=== PATIENT | male | born 1950 | race Caucasian/White ===

== ENCOUNTER 2018-11-14 05:32 | Observation (INO) ==
--- NOTE | 2018-11-01 15:15 | PAT Medication Instructions ---
Medication Instructions Date of Service November 01, 2018 Home Medications apple cider vinegar 1 mg PO DAILY ascorbic acid (vitamin C) [Vitamin C] 500 mg PO DAILY iedavsr-hqypdrkjm-vnaj 1 tab PO DAILY cetirizine 10 mg PO DAILY PRN cholecalciferol (vitamin D3) [Vitamin D3] 1,000 unit PO DAILY cyanocobalamin (vitamin B-12) [Vitamin B-12] 1,000 mcg PO DAILY ginseng 250 mg PO DAILY glucos sul 5VLu-gyw-uedxf-C-Mn [Glucosamine Chondroitin] 1 cap PO DAILY xrbxuwvt-cmg-ZB-lycopen-lutein [Centrum Silver Men] 1 tab PO DAILY omega 3-aiq-caz-fish oil [[place]-3] 1 cap PO DAILY saw palmetto 500 mg PO WK vitamin E 400 unit PO DAILY STOP taking 2 weeks before surgery (or as soon as possible if surgery is within 2 weeks) apple cider vinegar 1 mg PO DAILY ginseng 250 mg PO DAILY glucos sul 6CDd-qly-bebfm-C-Mn [Glucosamine Chondroitin] 1 cap PO DAILY omega 0-kaa-inx-fish oil [[place]-3] 1 cap PO DAILY saw palmetto 500 mg PO WK vitamin E 400 unit PO DAILY DO NOT take the morning of surgery ascorbic acid (vitamin C) [Vitamin C] 500 mg PO DAILY zctwiqc-fwnfbbsmg-wvkm 1 tab PO DAILY cetirizine 10 mg PO DAILY PRN cholecalciferol (vitamin D3) [Vitamin D3] 1,000 unit PO DAILY cyanocobalamin (vitamin B-12) [Vitamin B-12] 1,000 mcg PO DAILY Centrum Silver Men 1 tab PO DAILY Other Notes If you have any questions please call us at [phone] or [phone] or [phone] or [phone]
--- NOTE | 2018-11-02 15:18 | Anesthesiology Consultation ---
Date of Service November 02, 2018 Assessment & Plan (1) Encounter for pre-operative examination: Chart Review Chart Review: Acceptable Risk for Surgery and Patient seen in Pre Admission Testing Teaching & Discussion Instructed NPO after midnight before surgery, except medications with 15 cc of water. Medication instructions provided according to the PAT guidelines. History Surgery Operation Date: 11/14/18 09:55 Proposed Procedures p Open Recurrent Left Inguinal Hernia Repair - Duy Kennedy MD, FACS Height/Weight Height: 5 ft 7 in Weight: 80.4 kg Allergies Allergy/AdvReac Type Severity Reaction Status Date / Time No Known Allergies Allergy NKA Unverified 11/01/18 08:25 Medications Home Medications Medication Instructions Recorded Confirmed Last Taken apple cider vinegar 1 mg PO DAILY 11/01/18 11/01/18 Unknown ascorbic acid (vitamin C) [Vitamin 500 mg PO DAILY 11/01/18 11/01/18 Unknown C] eqhjtap-xmrrlcyhq-xgum 1 tab PO DAILY 11/01/18 11/01/18 Unknown cetirizine 10 mg PO DAILY PRN 11/01/18 11/01/18 Unknown cholecalciferol (vitamin D3) 1,000 unit PO DAILY 11/01/18 11/01/18 Unknown [Vitamin D3] cyanocobalamin (vitamin B-12) 1,000 mcg PO DAILY 11/01/18 11/01/18 Unknown [Vitamin B-12] ginseng 250 mg PO DAILY 11/01/18 11/01/18 Unknown glucos sul 6NTz-aic-wzvle-C-Mn 1 cap PO DAILY 11/01/18 11/01/18 Unknown [Glucosamine Chondroitin] qinmurqh-vqk-XA-lycopen-lutein 1 tab PO DAILY 11/01/18 11/01/18 Unknown [Centrum Silver Men] omega 2-otm-oyt-fish oil [[place]-3] 1 cap PO DAILY 11/01/18 11/01/18 Unknown saw palmetto 500 mg PO WK 11/01/18 11/01/18 Unknown vitamin E 400 unit PO DAILY 11/01/18 11/01/18 Unknown Past Medical History Medical History Hearing deficit BILATERAL HEARING AIDES Kidney stones Passed Recurrent inguinal hernia Exercise / Class Metabolic Activity II 4-5 Yardwork/Stairs/Walk up hill Past Family History Family History Other No pertinent family history Past Surgical History Surgical History History of colonoscopy History of herniorrhaphy LEFT INGUINAL HERNIA REPAIR Past Anesthesia History No Hx of Anesthesia Complications and No Family Hx of Anesthesia Complications History of PONV No Hx of PONV and No Hx of Motion Sickness Social History Smoking Status: Never smoker Do You Dip or Chew Tobacco: No Hx Alcohol Use: No Hx Substance Use: No substance use type: does not use Review of Systems Pt denies any recent chest pain, shortness of breath, palpitations, cough, fever or URI. +seasonal allergies, managed with prn OTC allergy medicine Physical Exam Vital Signs BP: 143/81 P: 62bpm SPO2: 95% RA T: 98.1 F R: 16 ENMT Mouth: + dentures (upper and lower partial); no chipped teeth and no loose teeth Thyromental Distance: > or= 3.5 Finger Breadths (3.5) Mallampati Class: II Neck normal visual inspection; neck extension not limited Respiratory normal respiratory effort Auscultation: lungs clear to auscultation bilaterally Cardiovascular Rate/Rhythm: regular rate and regular rhythm Heart Sounds: no murmur Vessels: no carotid bruit Extremities: no edema Testing Laboratory Results 11/02/18 15:28 11/02/18 15:28 Electrocardiogram Date: 11/02/18 Findings: + NSR @ (64)
[2018-11-02 15:52] LABS: Basophils # (auto) 0.03 K/uL (0-0.2); Basophils % (auto) 0.5 %; Eosinophils # (auto) 0.14 K/uL (0-0.5); Eosinophils % (auto) 2.4 %; Hematocrit (blood only) 40.5 % (42-52); Hemoglobin 14.4 g/dL (14.0-18.0); Immature Granulocytes # (auto) 0.01 K/uL (0.00-0.02); Immature Granulocytes % (auto) 0.2 %; Lymphocytes # (auto) 1.68 K/uL (1.2-3.4); Mean Corpuscular Hgb Conc 35.6 g/dL (32-36); Mean Corpuscular Volume 89.4 fL (80-100); Mean Platelet Volume 9.3 fL (7.4-10.4); Monocytes # (auto) 0.51 K/uL (0.11-0.59); Monocytes % (auto) 8.8 %; Neutrophils # (auto) 3.42 K/uL (1.4-6.5); Neutrophils % (auto) 59.1 %; Platelet Count 193 K/uL (130-400); RDW Coefficient of Variation 12.9 % (11.5-14.5); RDW Standard Deviation 41.7 fL (36.4-46.3); Red Blood Count 4.53 M/uL (4.7-6.1); White Blood Count 5.79 K/uL (4.8-10.8)
[2018-11-02 15:59] LABS: BUN Creatinine Ratio 17.5 (10-20); Calcium 9.3 mg/dl (8.5-10.1); Creatinine Clr Calc Pharmacy 72.3 ml/min; Est GFR (African American) 90.8; Est GFR (Non-African American) 78.4; Potassium 3.7 mmol/L (3.5-5.1)
[2018-11-14] MEDS ORDERED: CEFAZOLIN 2000MG 2,000 MG/15 ML SYR IV SCH (06:00)
[2018-11-14] MEDS ORDERED: LR 15ML/HR IV SCH (06:00)
[2018-11-14] MEDS ORDERED: DEXAMETHASONE SOD INJ 4 MG/ML VIAL ONE (06:36)
[2018-11-14] MEDS ORDERED: ONDANSETRON INJ 2 MG/ML 2 ML VIAL ONE (06:36)
[2018-11-14] MEDS ORDERED: LIDOCAINE HCL 2% 2 ML VIAL/AMP(20MG/ML) INFIL ONE (06:36)
[2018-11-14] MEDS ORDERED: MIDAZOLAM HCL 1 MG/ML 2ML VIAL ONE (06:36)
[2018-11-14] MEDS ORDERED: PROPOFOL IV EMULSION 10 MG/ML 20 ML VIAL IV ONE (06:36)
[2018-11-14] MEDS ORDERED: fentaNYL citrate 100 MCG/2 ML VIAL ONE (06:36)
[2018-11-14] MEDS ORDERED: CEFAZOLIN 250 MG/ML 1 GM VIAL ONE (06:47)
[2018-11-14] MEDS ORDERED: LIDOCAINE HCL 1% 20 ML VIAL ONE (06:47)
[2018-11-14] MEDS ORDERED: BUPIVACAINE 0.5 % 5 MG/1 ML MPF 30ML VIAL ONE (06:47)
[2018-11-14] MEDS ORDERED: ATROPINE SULFATE 0.1 MG/ML 10ML SYR IV PRN (08:02)
[2018-11-14] MEDS ORDERED: fentaNYL citrate 100 MCG/2 ML VIAL IV PRN (08:02)
[2018-11-14] MEDS ORDERED: ONDANSETRON INJ 2 MG/ML 2 ML VIAL IV PRN ×2 (08:02→10:03)
[2018-11-14] MEDS ORDERED: ePHEDrine sulfate 50 MG/ML AMP IV PRN (08:02)
[2018-11-14] MEDS ORDERED: HYDROmorphone INJ 1 MG/ML SYRINGE IV PRN (08:02)
[2018-11-14] MEDS ORDERED: ACETAMINOPHEN 1,000 MG/100 ML VIAL IV PRN (08:12)
--- NOTE | 2018-11-14 08:12 | Operative Report ---
Post Operative Report Pre & Post Diagnosis Operation Date: 11/14/18 07:00 Pre-Op Diagnosis: Recurrent Left Inguinal Hernia Post-Op Diagnosis: Recurrent Left Inguinal Hernia w/ indirect defect Procedure Operation Date: 11/14/18 07:00 Actual Procedures p Open Recurrent Left Inguinal Hernia Repair(Left) - Duy Kennedy MD, FACS Surgeon Duy Kennedy MD, FACS Armature Rewinder Yasir Banuelos Estimated Blood Loss 10 Findings Consistent with Post-Op Diagnosis Specimens none Description of Procedure see dictation I attest to the content of the Intraoperative Record and any orders documented therein. Any exceptions are noted below.
--- NOTE | 2018-11-14 08:32 | Operative Report ---
DATE OF OPERATION: 11/14/2018 NAME OF OPERATION: Recurrent left inguinal hernia repair with mesh. PREOPERATIVE DIAGNOSIS: Recurrent left inguinal hernia. POSTOPERATIVE DIAGNOSIS: Left inguinal hernia with indirect defect. STAFF SURGEON: Duy Kennedy MD POWDER WORKER: Alexander Banuelos PA-C ANESTHESIA: General. DESCRIPTION OF PROCEDURE: The patient was brought in the operating room and placed on the operating table in supine position. His lower abdomen was prepped and draped in usual fashion. He had a previous scar in the left lower abdomen. This was anesthetized using 0.5% plain Marcaine. Incision made parallel to the inguinal ligament, carrying dissection down through scar tissue, identifying the external oblique fibers and then the external ring. The external oblique fibers were incised along their length to the external ring, mobilizing the cord structures with some difficulty because of the prior scar tissue. It was then evident that the patient had an indirect hernia sac which on CT scan contained colon, but the colon was reduced. The cord structures were dissected away from the sac and then the sac reduced and then a large mesh plug placed into the defect, secured to surrounding tissue using 0 silk suture and 2-0 Ethibond suture. At this point, a large mesh patch was placed into the floor of the canal around the cord structures and then secured using 2-0 Ethibond suture and 0 silk suture. The area was irrigated with antibiotic solution and then anesthetized using 0.5% plain Marcaine. External oblique fibers were closed around the cord structures over the mesh using 2-0 Ethibond suture and 0 silk suture. Subcutaneous tissue was reapproximated using 2-0 plain suture and then the skin reapproximated using 4-0 nylon suture. My web press operator assistant helped with prepping, draping, repair of the hernia and closure of the wound. I attest to the content of the Intraoperative Record and any orders documented therein. Any exception s are noted below.
[2018-11-14] MEDS ORDERED: ACETAMINOPHEN 1000 MG/100 ML IV IV ONE (09:01)
[2018-11-14] MEDS ORDERED: ACETAMINOPHEN 1,000 MG/100 ML VIAL IV STA (09:02)
[2018-11-14] MEDS ORDERED: ROCURONIUM BROMIDE 10 MG/ML 5 ML VIAL ONE (09:19)
--- NOTE | 2018-11-14 09:19 | Anesthesiology Progress Note ---
Date of Service November 14, 2018 Anesthesia Post Procedure Vital Signs Vital Signs: Temp Pulse Pulse Resp BP Pulse Ox 11/14/18 09:00 80 20 136/81 96 11/14/18 08:50 77 20 139/78 95 11/14/18 08:40 36.3 C L 91 H 18 142/76 H 95 11/14/18 06:01 36.9 C 51 L 18 115/80 98 Transfer of Care Handoff Completed per policy Notes Mental Status: alert / awake / arousable and participated in evaluation Patient Amnestic to Procedure: Yes Nausea / Vomiting: adequately controlled Pain: adequately controlled Airway Patency, RR, SpO2: stable & adequate BP & HR: stable & adequate Hydration State: stable & adequate Anesthetic Complications: no major complications apparent and Pt Satisfied with anesthetic care
[2018-11-14] MEDS ORDERED: NEOSTIGMINE METHYLSULFATE 5 MG/5 ML SYR ONE (09:24)
[2018-11-14] MEDS ORDERED: GLYCOPYRROLATE 0.2 MG/ML VIAL ONE (09:24)
[2018-11-14] MEDS ORDERED: SODIUM CHLORIDE 0.9% 1000ML 1,000 ML IV SCH (10:03)
[2018-11-14] MEDS ORDERED: HYDROCODONE/ACETAMOPHEN 5/325MG TAB PO PRN ×2 (10:03)
[2018-11-14] MEDS ORDERED: PROMETHAZINE HCL 25 MG in SODIUM CHLORIDE 0.9% 50 ML IV PRN (10:03)
[2018-11-14] MEDS ORDERED: ACETAMINOPHEN 325 MG TAB PO PRN (10:03)
[2018-11-14] MEDS ORDERED: IBUPROFEN 600 MG TAB PO PRN (10:03)
[2018-11-14] MEDS ORDERED: PROMETHAZINE HCL 12.5 MG in SODIUM CHLORIDE 0.9% 50 ML IV PRN (10:03)
[2018-11-14] MEDS ORDERED: MoRPHine SULFATE 2 MG/ML CARP IV PRN (10:03)
[2018-11-14] MEDS: CEFAZOLIN 1000MG 1,000 MG/7.5 ML SYR IV SCH ×2 (13:44→21:28)
--- NOTE | 2018-11-14 14:00 | Hospitalist Consultation ---
Date of Consultation November 14, 2018 Assessment & Plan (1) Encounter for consultation: Patient seen postoperatively is in stable condition his medications have been continued by Dr. Kennedy he has no complaints or problems we will continue to watch him for any new signs or symptoms otherwise the patient is likely anticipate to be discharged home in the next 24 hours History of Present Illness Attending Physician: Duy Kennedy MD, FACS 11/14/18 07:00 Anesthesia Type: General Open Recurrent Left Inguinal Hernia Repair History of Present Illness Medical consultation gentleman status post left inguinal hernia repair by Dr. Duy Kennedy. Patient is generally a fairly healthy gentleman only medication this prescription although its svwy-uel-rxrcjto he takes Zyrtec the remainder of her nutraceuticals and vitamins. Patient seen postoperatively he has no complaints or problems. He is ambulating in the room already has moved his bowels and is urged to go home, likely in the morning Allergies Allergy/AdvReac Type Severity Reaction Status Date / Time No Known Allergies Allergy NKA Verified 11/14/18 05:51 Home Medications Home Medications Medication Instructions Recorded Confirmed Type apple cider vinegar 1 mg PO DAILY 11/01/18 11/14/18 History ascorbic acid (vitamin C) [Vitamin 500 mg PO DAILY 11/01/18 11/14/18 History C] rmroibx-ejcjhkhck-efnn 1 tab PO DAILY 11/01/18 11/14/18 History cetirizine 10 mg PO DAILY PRN 11/01/18 11/14/18 History cholecalciferol (vitamin D3) 1,000 unit PO DAILY 11/01/18 11/14/18 History [Vitamin D3] cyanocobalamin (vitamin B-12) 1,000 mcg PO DAILY 11/01/18 11/14/18 History [Vitamin B-12] ginseng 250 mg PO DAILY 11/01/18 11/14/18 History glucos sul 5MGg-fux-pljwc-C-Mn 1 cap PO DAILY 11/01/18 11/14/18 History [Glucosamine Chondroitin] inexdixz-vyv-CZ-lycopen-lutein 1 tab PO DAILY 11/01/18 11/14/18 History [Centrum Silver Men] omega 6-sjn-juj-fish oil [[place]-3] 1 cap PO DAILY 11/01/18 11/14/18 History saw palmetto 500 mg PO WK 11/01/18 11/14/18 History vitamin E 400 unit PO DAILY 11/01/18 11/14/18 History cephalexin [Keflex] 500 mg PO TID #15 cap 11/14/18 Rx hydrocodone-acetaminophen [[place]] 1 - 2 tab PO Q6H PRN #30 tab 11/14/18 Rx Patient History Medical History Hearing deficit BILATERAL HEARING AIDES Kidney stones Passed Recurrent inguinal hernia Surgical History History of colonoscopy History of herniorrhaphy LEFT INGUINAL HERNIA REPAIR Family History Other No pertinent family history Social History Preferred Language: Ukrainian Communication Ability: Effective Lead Web Developer Required: No Beliefs That Will Affect Care: None Current Living Situation: Spouse Other Information That Helps Us Care for You: No Feels Safe at Home: Yes Safety Concerns: Feels Safe At This Time Smoking Status: Never smoker Do You Dip or Chew Tobacco: No Second Hand Exposure: No Tobacco Cessation Education Requested by Patient: No Hx Alcohol Use: No Hx Substance Use: No Review of Systems Review of Systems: ROS: well nourished well developed. No double vision blurry vision No problems with speech or swallowing No palpitations, chest pain or pressure No Wheezing or breathing issues Some mild left lower quadrant abdominal pain but no nausea vomiting had a bowel movement already No burning urine urine frequency or changes in color No focal joint pain or muscle pain No skin rashes or oral lesions No unusual bruising or bleeding No focused back pain or numbness or loss of strength No changes in memory or confusion Physical Exam Physical Exam: The patient appeared well nourished and normally developed. Vital signs as documented. Head exam is unremarkable. normocephalic, atraumatic Neck is without jugular venous distension, thyromegaly, or lymphademopathy Lungs are clear to auscultation and percussion. Cardiac exam reveals Rhythm is regular. First and second heart sounds normal. Abdominal exam reveals normal bowel sounds, no masses, no organomegaly mild tenderness to palpation of his lower abdomen worse in the left quadrant than right but definitely not anything suspicious at this time Extremities are nonedematous and both pedal pulses are present Neurologic exam is A&Ox3, no focal deficits, strength is equal bilateral Psychologically seems neither anxious or depressed Skin is warm Dry Results & Data Vital Signs (Past 12 Hours) Vital Signs Temp Pulse Pulse Resp BP Pulse Ox 11/14/18 13:00 79 16 131/73 91 11/14/18 11:55 79 16 152/69 H 90 11/14/18 10:57 91 H 16 157/82 H 98 11/14/18 10:26 84 16 137/82 97 11/14/18 09:55 36.5 C 82 18 133/73 96 11/14/18 09:45 71 21 115/74 97 11/14/18 09:30 67 19 123/71 97 11/14/18 09:20 36.2 C L 68 20 126/68 96 11/14/18 09:10 70 19 118/69 94 11/14/18 09:00 80 20 136/81 96 11/14/18 08:50 77 20 139/78 95 11/14/18 08:40 36.3 C L 91 H 18 142/76 H 95 11/14/18 06:01 36.9 C 51 L 18 115/80 98 PG Care Time/CCT Total # of Minutes Spent Total Time Spent with Patient: Total time spent is greater than 50% in coordination of care (as documented) at patient's floor/unit and/or counseling patient:
[2018-11-15] MEDS: CEFAZOLIN 1000MG 1,000 MG/7.5 ML SYR IV SCH (05:56)
--- NOTE | 2018-11-15 07:20 | Discharge Summary ---
PRINCIPAL DIAGNOSIS: Recurrent left inguinal hernia. PROCEDURES: The patient underwent open left inguinal hernia repair. HISTORY OF PRESENT ILLNESS AND HOSPITAL COURSE: The patient is a 68-year-old male who has had prior left inguinal hernia repair, open, approximately 30 years prior and then in 2012 laparoscopic repair. The patient was brought into the hospital on 11/14/2018 where he underwent open left inguinal hernia repair which he tolerated very well and has done well overnight and is felt stable for discharge home today. We will follow him in the surgical clinic next week.
--- NOTE | 2018-11-15 08:12 | Anesthesiology Progress Note ---
Date of Service November 15, 2018 Anesthesia Post Procedure Vital Signs Vital Signs: Temp Pulse Pulse Resp BP Pulse Ox 11/15/18 07:48 36.8 C 56 L 19 151/95 H 94 11/15/18 04:16 36.8 C 80 18 161/80 H 95 11/14/18 23:46 36.9 C 88 16 152/71 H 92 11/14/18 19:44 36.9 C 90 18 152/84 H 93 11/14/18 15:10 36.6 C 84 18 124/67 93 11/14/18 13:00 79 16 131/73 91 11/14/18 11:55 79 16 152/69 H 90 11/14/18 10:57 91 H 16 157/82 H 98 11/14/18 10:26 84 16 137/82 97 11/14/18 09:55 36.5 C 82 18 133/73 96 11/14/18 09:45 71 21 115/74 97 11/14/18 09:30 67 19 123/71 97 11/14/18 09:20 36.2 C L 68 20 126/68 96 11/14/18 09:10 70 19 118/69 94 11/14/18 09:00 80 20 136/81 96 11/14/18 08:50 77 20 139/78 95 11/14/18 08:40 36.3 C L 91 H 18 142/76 H 95 Notes Mental Status: alert / awake / arousable and participated in evaluation Patient Amnestic to Procedure: Yes Nausea / Vomiting: adequately controlled Pain: adequately controlled Airway Patency, RR, SpO2: stable & adequate BP & HR: stable & adequate Hydration State: stable & adequate Anesthetic Complications: no major complications apparent and Pt Satisfied with anesthetic care
== END 2018-11-15 11:58 | disposition home or self-care (01) ==
LOC: ASU 05:32 → 3W 05:32